=== PATIENT | male | born 2000 | race Caucasian/White ===

== ENCOUNTER 2020-11-05 03:11 | Emergency (ER) | payer OTHER ==
[2020-11-05 03:49] VITALS: O2SAT 98
[2020-11-05] MEDS ORDERED: KEFLEX 500 MG ONE (04:04)
[2020-11-05] MEDS ORDERED: KEFLEX 500 MG PO ONE (04:04)
--- NOTE | 2020-11-05 04:04 | ERPHSYRPT ---
- History of Present Illness Time Seen by Provider: 11/05/20 03:59 Source: patient Exam Limitations: no limitations Patient Subjective Stated Complaint: "My sinuses are congested." Triage Nursing Assessment: patient reported a two and one half hour old sore throat that he just "felt warm" at home and couldn't think of any medicine to take. He reported that he thought he should come in because he thought he had a sore throat. He also reported, "I think I have a stuffy nose." Physician History: Patient is a 20-year-old white male who approximately 2 hours ago awoke from sleep with some nasal congestion and some soreness in his throat and some post nasal drainage. He thought he might have a strep throat he has an occasional cough he had no medicine at home so he came to the emergency room. Timing/Duration: abrupt onset Severity: mild ENT Location: nose, throat Prearrival Treatment: no prearrival treatment Modifying Factors: Improves With: coughing Associated Symptoms: cough, nasal congestion/drainage, sore throat Allergies/Adverse Reactions: No Known Drug Allergies Allergy (Unverified 11/05/20 03:19) Home Medications: Ergocalciferol (Vitamin D2) [Vitamin D2] 1.25 mg PO WEEKLY 11/05/20 [History] Mirtazapine 30 mg [Remeron 30 mg] 30 mg PO HS 11/05/20 [History] Hx Tetanus, Diphtheria Vaccination/Date Given: Yes Hx Influenza Vaccination/Date Given: No Travel Risk - International Travel Have you traveled outside of the country in past 3 weeks: No - Coronavirus Screening Are you exhibiting any of the following symptoms?: No Close contact with a COVID-19 positive Pt in past 14-21 Days: No - Vaccine Status Have you recieved a Covid-19 vaccination: No - Review of Systems Constitutional: No Fever, No Chills Eyes: No Symptoms Ears, Nose, & Throat: No Symptoms, Nose Congestion, Nose Discharge, Sinus Drainage, Throat Pain, Painful Swallowing Respiratory: No Cough, No Dyspnea Cardiac: No Chest Pain, No Edema, No Syncope Abdominal/Gastrointestinal: No Abdominal Pain, No Nausea, No Vomiting, No Diarrhea Genitourinary Symptoms: No Dysuria Musculoskeletal: No Back Pain, No Neck Pain Skin: No Rash Neurological: No Dizziness, No Focal Weakness, No Sensory Changes Psychological: No Symptoms Endocrine: No Symptoms All Other Systems: Reviewed and Negative - Past Medical History Pertinent Past Medical History: Yes Other Medical History: vitamin D2 deficiency - Past Surgical History Past Surgical History: Yes Musculoskeletal: Orthopedic Surgery - Social History Smoking Status: Current every day smoker Exposure to second hand smoke: No Drug Use: none Patient Lives Alone: No - Nursing Vital Signs Nursing Vital Signs: Initial Vital Signs Temperature 97.8 F 11/05/20 03:12 Pulse Rate 71 11/05/20 03:12 Respiratory Rate 18 11/05/20 03:12 Blood Pressure 118/73 11/05/20 03:12 O2 Sat by Pulse Oximetry 98 11/05/20 03:12 Pain Scale Pain Intensity 4 - Physical Exam General Appearance: no apparent distress, alert Eye Exam: bilateral eye: normal inspection, PERRL, EOMI Ear Exam: bilateral ear: auricle normal, canal normal, TM normal Nasal Exam: discharge Throat Exam: moist mucus membranes, pharynx swelling, pharynx tenderness, No tonsillar exudate Neck Exam: normal inspection, non-tender, supple Cardiovascular/Respiratory Exam: normal breath sounds, regular rate/rhythm Abdominal Exam: non-tender, soft Neurologic Exam: alert, oriented x 3, sensation nml, No motor deficits Skin Exam: normal color, warm, dry SpO2: 98 - Course Nursing assessment & vital signs reviewed: Yes - Progress Progress: unchanged - Departure Departure Disposition: Home Clinical Impression: Sinusitis Condition: Stable Critical Care Time: No Referrals: VALENTIN CIFUENTES [Primary Care Provider] - Instructions: Sinusitis, Adult (DC) Prescriptions: Cephalexin Mh 500 mg [Keflex 500 mg] 500 mg PO TID #21 capsule
[2020-11-05 04:29] VITALS: BP 108/56; PULSE 68
== END 2020-11-05 04:15 | disposition home or self-care (01) ==
LOC: ED 03:11
DX: J32.9 Chronic sinusitis, unspecified (principal)
CPT/HCPCS: 99283; A9270-GY

== ENCOUNTER 2021-03-15 16:17 | Emergency (ER) | payer OTHER ==
[2021-03-15 16:29] VITALS: O2SAT 99
[2021-03-15] MEDS ORDERED: ZOFRAN ODT 4 MG PO ONE (16:31)
[2021-03-15] MEDS ORDERED: ZOFRAN ODT 4 MG ONE (16:32)
--- NOTE | 2021-03-15 16:48 | ERPHSYRPT ---
- History of Present Illness Time Seen by Provider: 03/15/21 16:30 Source: patient Exam Limitations: no limitations Patient Subjective Stated Complaint: PT states "I have had acidy vomit all day today" Triage Nursing Assessment: Pt presented alert and oriented X 3, skin wpd Pt ambulates with an upright steady gait, able to speak in clear full sentences pt in no apparent respiratory distress. Physician History: Patient is a 20-year-old male presents to our ED with complaints of intermittent vomiting of stomach acids. Patient also complains of a vague periumbilical pain. Symptoms started today. No trauma. No fever. No diarrhea. No rash. Symptoms are mild to moderate in intensity. No specific worsening improving factors. Patient states he is otherwise healthy. He voices no other complaints or concerns at this time. Timing/Duration: today Severity: moderate Modifying Factors: Improves With: nothing Associated Symptoms: vomiting, abdominal pain Allergies/Adverse Reactions: No Known Drug Allergies Allergy (Verified 03/15/21 16:28) Hx Tetanus, Diphtheria Vaccination/Date Given: No Hx Influenza Vaccination/Date Given: Yes Hx Pneumococcal Vaccination/Date Given: No Immunizations Up to Date: Yes Travel Risk - International Travel Have you traveled outside of the country in past 3 weeks: No - Coronavirus Screening Are you exhibiting any of the following symptoms?: No Close contact with a COVID-19 positive Pt in past 14-21 Days: No - Vaccine Status Have you recieved a Covid-19 vaccination: Yes [employer]ous [employer]: [employer] - Vaccination Dates Date of 2cond Vaccination (if applicable): 02/2021 - Review of Systems Constitutional: No Symptoms, No Fever, No Chills Eyes: No Symptoms Ears, Nose, & Throat: No Symptoms Respiratory: No Symptoms, No Cough, No Dyspnea Cardiac: No Symptoms, No Chest Pain, No Edema, No Syncope Abdominal/Gastrointestinal: No Symptoms, No Abdominal Pain, No Nausea, No Vomiting, No Diarrhea Genitourinary Symptoms: No Symptoms, No Dysuria Musculoskeletal: No Symptoms, No Back Pain, No Neck Pain Skin: No Symptoms, No Rash Neurological: No Symptoms, No Dizziness, No Focal Weakness, No Sensory Changes Psychological: No Symptoms Endocrine: No Symptoms Hematologic/Lymphatic: No Symptoms Immunological/Allergic: No Symptoms All Other Systems: Reviewed and Negative - Past Medical History Pertinent Past Medical History: Yes Other Medical History: vitamin D2 deficiency - Past Surgical History Past Surgical History: Yes Musculoskeletal: Orthopedic Surgery - Social History Smoking Status: Never smoker Exposure to second hand smoke: Yes Drug Use: none Patient Lives Alone: No - Nursing Vital Signs Nursing Vital Signs: Initial Vital Signs Temperature 97.7 F 03/15/21 16:24 Pulse Rate 74 03/15/21 16:24 Respiratory Rate 18 03/15/21 16:24 Blood Pressure 133/90 03/15/21 16:24 O2 Sat by Pulse Oximetry 99 03/15/21 16:24 Pain Scale Pain Intensity 8 - Physical Exam General Appearance: no apparent distress, alert Eye Exam: PERRL/EOMI, eyes nml inspection Ears, Nose, Throat Exam: normal ENT inspection, TMs normal, pharynx normal, moist mucous membranes Neck Exam: normal inspection, non-tender, supple, full range of motion Respiratory Exam: normal breath sounds, lungs clear, airway intact, No respiratory distress Cardiovascular Exam: regular rate/rhythm, normal heart sounds, normal peripheral pulses Gastrointestinal/Abdomen Exam: soft, normal bowel sounds, No tenderness, No mass Back Exam: normal inspection, normal range of motion, No CVA tenderness, No vertebral tenderness Extremity Exam: normal inspection, normal range of motion, pelvis stable Neurologic Exam: alert, oriented x 3, cooperative, normal mood/affect, nml cerebellar function, nml station & gait, sensation nml, No motor deficits Skin Exam: normal color, warm, dry, No rash Lymphatic Exam: No adenopathy SpO2 Interpretation: normal SpO2: 99 O2 Delivery: Room Air - Course Nursing assessment & vital signs reviewed: Yes - CT Exams Abdomen/Pelvis CT Interpretation: Tele-radiologist Report (Negative for renal calculus or evidence of obstructive uropathy. Mild diffuse fecal stasis. Incidental levoscoliosis of the pectus excavatum deformity. Normal air-filled appendix. There is mild diffuse scattered colonic fecal debris throughout including rectum.) Ordered Tests: Active Orders 24 hr Category Date Time Status ABDOMEN AND PELVIS W/0 CONTRAS [CT] Stat Exams 03/15/21 16:34 Completed Medication Summary Discontinued Medications Generic Name Dose Route Start Last Admin Trade Name Freq PRN Reason Stop Dose Admin Ondansetron HCl 4 mg 03/15/21 16:31 03/15/21 16:33 Zofran 4 Mg/Udtablet Orally Disintegrating PO 03/15/21 16:32 4 mg STAT ONE Administration Ondansetron HCl Confirm 03/15/21 16:32 Zofran 4 Mg/Udtablet Orally Disintegrating Administered 03/15/21 16:33 Dose 4 mg .ROUTE .STK-MED ONE - Progress Progress: improved Progress Note: Patient reassessed. He feels well. Patient tolerated p.o. CT abdomen pelvis reveals diffuse fecal stasis. No indication for further work-up at this time. Patient is otherwise healthy. He voices no other complaints or concerns at this time. He agrees to follow-up with his primary care doctor within 48 hours reevaluation. Portions of this note were created with voice recognition technology. There may be grammatical, spelling, punctuation or sound alike errors 03/15/21 17:09 A prescription for Zofran was forwarded to patient's pharmacy. We discussed the need for clear liquids for the next couple days. 03/15/21 17:11 Counseled pt/family regarding: diagnosis, need for follow-up, rad results - Departure Departure Disposition: Home Clinical Impression: Constipated, Nausea and vomiting Condition: Stable Critical Care Time: No Referrals: VALENTIN CIFUENTES [COURTESY STAFF] - Follow up/PCP as directed Additional Instructions: Discharge/Care Plan KENYETTABRIANNADONA,MARTHA was seen on 03/15/21 in the Emergency Room. The patient was counseled regarding Diagnosis,Lab results, Imaging studies, need for follow up and when to return to the Emergency Room. Prescriptions given: Discharge Note I have spoken with the patient and/or caregivers. I have explained the patient's condition, diagnosis and treatment plan based on the information available to me at this time. I have answered the patient's and/or caregiver's questions and addressed any concerns. The patient and/or caregivers have as good understanding of the patient's diagnosis, condition and treatment plan as can be expected at this point. The vital signs have been stable. The patient's condition is stable and appropriate for discharge from the emergency department. The patient will pursue further outpatient evaluation with the primary care physician or other designated or consulting physician as outlined in the discharge instructions. The patient and/or caregivers are agreeable to this plan of care and follow-up instructions have been explained in detail. The patient and/or caregivers have received these instruction. The patient/and or caregivers are aware that any significant change in condition or worsening of symptoms should prompt an immediate return to this or the closest emergency department or call 911. Prescriptions: Ondansetron ODT 4 MG [Zofran Odt 4 mg] 4 mg PO Q6H PRN PRN #10 tablet PRN Reason: Vomiting
--- NOTE | 2021-03-15 17:00 | XRAY ---
Indication: Lower abdomen pain. Vomiting. Multiple contiguous axial images obtained through the abdomen and pelvis without contrast using renal stone protocol. Comparison: None Lung bases are clear. Heart not enlarged. No renal calculus or evidence for obstructive uropathy in either system. Noncontrasted stomach and bowel loops appear nonobstructed. Normal air-filled appendix. There is mild diffuse scattered colonic fecal debris throughout including rectum. No free fluid/air. Remaining liver, gallbladder, pancreas, spleen, adrenal glands, kidneys, ureters, bladder, and aorta are unremarkable for noncontrast exam. Osseous structures intact with incidental mild levoscoliosis centered at L3 and mild pectus excavatum deformity. Impression: 1. Negative renal calculus or evidence for obstructive uropathy. 2. Mild diffuse fecal stasis. 3. Incidental levoscoliosis and pectus excavatum deformity.
[2021-03-15 17:27] VITALS: BP 114/64; PULSE 72
== END 2021-03-15 17:31 | disposition home or self-care (01) ==
LOC: ED 16:17
DX: R11.2 Nausea with vomiting, unspecified (principal); K59.00 Constipation, unspecified; R10.33 Periumbilical pain
CPT/HCPCS: 74176; 99283; Q0162

== ENCOUNTER 2021-03-29 13:53 | Emergency (ER) | payer OTHER ==
--- NOTE | 2021-03-29 13:57 | ERPHSYRPT ---
- History of Present Illness Time Seen by Provider: 03/29/21 13:56 Source: patient Exam Limitations: no limitations Physician History: This is a 20-year-old left-handed white male who presents with a laceration to his left index finger. The injury occurred prior to arrival at work. Patient does not recall his last tetanus injection. Patient suffered a laceration while using a box maker paperboard. Timing/Duration: today Quality: painful Severity: mild Location: hands (To moderate left index finger) Possible Causes: other (hoop cutter laceration) Associated Symptoms: denies symptoms Allergies/Adverse Reactions: No Known Drug Allergies Allergy (Verified 03/29/21 13:59) Hx Tetanus, Diphtheria Vaccination/Date Given: No Hx Influenza Vaccination/Date Given: Yes Hx Pneumococcal Vaccination/Date Given: No Travel Risk - International Travel Have you traveled outside of the country in past 3 weeks: No - Coronavirus Screening Are you exhibiting any of the following symptoms?: No Close contact with a COVID-19 positive Pt in past 14-21 Days: No - Vaccine Status Have you recieved a Covid-19 vaccination: 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[employer]: [employer] - Vaccination Dates Date of 2cond Vaccination (if applicable): 02/2021 - Review of Systems Constitutional: No Symptoms Eyes: No Symptoms Ears, Nose, & Throat: No Symptoms Respiratory: No Symptoms Cardiac: No Symptoms Abdominal/Gastrointestinal: No Symptoms Genitourinary Symptoms: No Symptoms Musculoskeletal: No Symptoms Skin: No Symptoms Neurological: No Symptoms Psychological: No Symptoms Endocrine: No Symptoms Hematologic/Lymphatic: No Symptoms Immunological/Allergic: No Symptoms All Other Systems: Reviewed and Negative - Past Medical History Pertinent Past Medical History: Yes Other Medical History: vitamin D2 deficiency - Past Surgical History Past Surgical History: Yes Musculoskeletal: Orthopedic Surgery - Social History Smoking Status: Never smoker Exposure to second hand smoke: Yes Drug Use: none Patient Lives Alone: No - Nursing Vital Signs Nursing Vital Signs: Initial Vital Signs Temperature 97.2 F 03/29/21 14:03 Pulse Rate 97 H 03/29/21 14:03 Respiratory Rate 18 03/29/21 14:03 Blood Pressure 133/76 03/29/21 14:03 O2 Sat by Pulse Oximetry 97 03/29/21 14:03 Pain Scale Pain Intensity 4 - Physical Exam General Appearance: no apparent distress, alert, anxiety Eye Exam: PERRL/EOMI, eyes nml inspection Ears, Nose, Throat Exam: normal ENT inspection, moist mucous membranes Neck Exam: normal inspection, non-tender, supple, full range of motion Respiratory Exam: airway intact, No chest tenderness, No respiratory distress Gastrointestinal/Abdomen Exam: No tenderness Rectal Exam: not done Back Exam: normal inspection, normal range of motion, No CVA tenderness, No vertebral tenderness Extremity Exam: normal inspection, normal range of motion, pelvis stable Neurologic Exam: alert, oriented x 3, cooperative, binder cutter II-XII nml as tested, normal mood/affect, nml cerebellar function, nml station & gait, sensation nml Skin Exam: laceration (2 cm ulnar flap laceration not actively bleeding. Neurovascularly intact. Tendon function intact) Lymphatic Exam: No adenopathy SpO2 Interpretation: normal O2 Delivery: Room Air Procedures - Laceration/Wound Repair Left Finger Time of Procedure: 14:40 Wound Location: Left Wound Length (cm): 2 Wound's Depth, Shape: superficial, linear, flap Wound Explored: clean (No foreign body noted. Evaluation was made to the base in a bloodless field) Irrigated: Yes Hibiclens Prep: Yes Wound Repaired With: Steri-strips (Applied after sterile preparation, drying, benzoin application and Dermabond glue), Dermabond (With Hibiclens) Splint Applied?: Yes Type of Splint Applied: Finger foam splint with pressure dressing application. - Course Nursing assessment & vital signs reviewed: Yes Ordered Tests: Medication Summary Discontinued Medications Generic Name Dose Route Start Last Admin Trade Name Freq PRN Reason Stop Dose Admin Diphtheria/Tetanus/Acell Pertussis 0.5 ml 03/29/21 14:41 Tdap --Diph,Pertuss(Acell),Tet Vac/Pf 0.5 Ml Vial IM 03/29/21 14:42 .ONCE ONE - Progress Progress: improved Counseled pt/family regarding: diagnosis, need for follow-up - Departure Departure Disposition: Home Clinical Impression: Finger laceration Condition: Stable Critical Care Time: No Referrals: CHASE ARROYO NP [Primary Care Provider] - Follow up/PCP as directed Additional Instructions: Keep current dressing in place for 48 hours. After 40 hours may remove the top pressure dressing and foam splint and wash daily thereafter. Once she returned to work, make sure that you leave the Steri-Strips in place until they fall off and cover your finger laceration repair site with a bandage and use gloves. May use Tylenol and ibuprofen for pain control.
[2021-03-29 14:07] VITALS: BP 133/76; PULSE 97; O2SAT 97
[2021-03-29] MEDS ORDERED: Adacel Vial IM ONE ×2 (14:41→14:54)
== END 2021-03-29 15:15 | disposition home or self-care (01) ==
LOC: ED 13:53
DX: S61.211A Laceration without foreign body of left index finger without damage to nail, initial encounter (principal); W26.0XXA Contact with knife, initial encounter
CPT/HCPCS: 12001; 90471; 90715; 99283

== ENCOUNTER 2021-06-29 00:43 | Emergency (ER) | payer MEDICAID, OTHER ==
[2021-06-29] MEDS ORDERED: MOTRIN 400 MG PO ONE (00:44)
[2021-06-29] MEDS ORDERED: TYLENOL EXTRA STRENGTH 500 MG PO ONE (00:44)
[2021-06-29] MEDS ORDERED: Sodium Chloride 0.9% 1000 ML 1,000 ML IV ONE (00:44)
[2021-06-29 02:57] LABS: INFLUENZA A POSITIVE (NEGATIVE); INFLUENZA B NEGATIVE (NEGATIVE)
[2021-06-29 02:58] LABS: COVID AG -BINAX NOW RAPID TEST NEGATIVE (NEGATIVE)
== END 2021-06-29 03:00 | disposition home or self-care (01) ==
LOC: ED 00:43
DX: J10.1 Influenza due to other identified influenza virus with other respiratory manifestations (principal); R50.9 Fever, unspecified; R05.1 Acute cough
CPT/HCPCS: 87400; 87651; 99000; 99282; A9270-GY